=== PATIENT | female | born 1975 | race American Indian/Alaskan Native ===

== ENCOUNTER 2018-01-04 15:57 | Emergency (ER) | payer SELFPAY ==
[2018-01-04 16:21] VITALS: BP 145/92
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
[2018-01-04 21:50] LABS: Bilirubin,Urine NEG (Negative); Blood,Urine NEG (Negative); Color,Urine Yellow (Yellow); Mucus,Urine 3+ /HPF
[2018-01-04 21:55] LABS: HCG Qualitative,Urine Positive (Negative)
--- NOTE | 2018-01-05 00:29 | Ultrasound Report ---
FINAL REPORT PROCEDURE: US OB > = 14 WEEKS FETUS TECHNIQUE: Real-time transabdominal sonography of the uterus, placenta, amniotic fluid, adnexa, and fetus was performed with image documentation. Measurements were obtained to determine age/size. M-mode Doppler was used to document heartbeat. CPT 86626 HISTORY: positive urine with abdominal pain COMPARISON: No prior studies are available for comparison. FINDINGS: ADDITIONAL GESTATION: None. GENERAL: IUP: Single living intrauterine . Position: Breech Placental position: Posterior and fundal, without previa. Amniotic fluid volume: Normal. MATERNAL: Uterus: Within normal limits. Cervical length: 4.0 cm. Internal Os: Closed. FETUS: Heart rate and rhythm: 132 beats per minute anatomic survey: Normal. MEASUREMENTS: BPD: 7.8 centimeters correspond at 31 weeks and 3 days HC: 29.8 centimeters corresponding to 33 weeks AC: 26.87 centimeters correspond at 31 weeks FL: 6.17 centimeters correspond at 32 weeks Mean Gestational Age (composite criteria): 31 weeks and 6 days Ratio biometry: Normal. Estimated Weight: 1785 grams. Interval growth: Appropriate. Estimated Due Date (earliest scan): 03/02/2018 IMPRESSION: Single intrauterine gestation at 31 weeks and 6 days. Estimated due date: 03/02/2018. Normal survey with appropriate growth.
== END 2018-01-05 01:08 | disposition home or self-care (01) ==
LOC: ED 15:57
DX: Z32.01 Encounter for pregnancy test, result positive (principal); F17.200 Nicotine dependence, unspecified, uncomplicated
CPT/HCPCS: 36415; 76805; 81001; 81025; 84702; 99284